=== PATIENT | female | born 2000 | race Caucasian/White ===

== ENCOUNTER 2021-02-08 04:25 | Emergency (ER) | payer OTHER ==
[2021-02-08 04:48] LABS: Urine Blood Trace-intact (Negative); Urine Glucose Negative (Negative); Urine Protein Trace (Negative); Urine Specific Gravity >=1.030 (1.005-1.030)
[2021-02-08 05:01] LABS: Urine Specific Gravity/Preg >1.030 (1.005-1.030)
[2021-02-08] MEDS ORDERED: MORPHINE 4 MG/ML SYR ONE (05:08)
[2021-02-08] MEDS ORDERED: ONDANSETRON 4 MG/2 ML VIAL ONE (05:08)
[2021-02-08] MEDS ORDERED: NA CHLORIDE 0.9% 500 ML ONE (05:09)
[2021-02-08 05:43] LABS: Absolute Lymphocytes (CBC) 2.3 K/uL (0.7-4.9); Basophils % 0.3 % (0-1.3); Hematocrit 33.7 % (36.0-45.0); Lymphocytes % 18.4 % (15.3-44.8); MPV 8.8 fL (7.6-11.3)
[2021-02-08 06:16] LABS: ALT/SGPT 30 U/L (12-78); AST/SGOT 22 U/L (15-37); Albumin 3.6 g/dL (3.4-5.0); Alkaline Phosphatase 60 U/L (45-117); BUN Blood Urea Nitrogen 16 mg/dL (7-18); Bicarbonate 25 mmol/L (21-32); Bilirubin Direct < 0.1 mg/dL (0-0.2); Bilirubin Total 0.4 mg/dL (0.2-1.0); Glucose Level 134 mg/dL (74-106); Lipase 95 U/L (73-393); Potassium 3.7 mmol/L (3.5-5.1); Protein, Total 7.5 g/dL (6.4-8.2); Sodium Level 138 mmol/L (136-145)
--- NOTE | 2021-02-08 08:15 | ER ---
Nurse's Notes [facility] Name: Valery Murrell Age: 20 yrs Sex: Female : 2000 Arrival Date: 02/08/2021 Time: 04:28 Bed 17 Private MD: Diagnosis: Biliary colic Presentation: 02/08 04:37 Chief complaint: Patient states: Scheduled for Gall Bladder Surgery on Sunday, Pt wh having RUQ pain and nausea. Coronavirus screen: Client denies travel out of the [place] in the last 14 days. At this time, the client does not indicate any symptoms associated with coronavirus-19. Ebola Screen: Patient negative for fever greater than or equal to 101.5 degrees Fahrenheit, and additional compatible Ebola Virus Disease symptoms Patient denies exposure to infectious person. Initial Sepsis Screen: Does the patient meet any 2 criteria? No. Patient's initial sepsis screen is negative. Does the patient have a suspected source of infection? Yes: Acute abdominal pain. Risk Assessment: Do you want to hurt yourself or someone else? Patient reports no desire to harm self or others. Onset of symptoms was February 08, 2021. 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 - Social history:: Smoking status: Patient denies any tobacco usage or history of. Screenin:41 Abuse screen: Denies threats or abuse. Denies injuries from another. Nutritional screening: No deficits noted. Tuberculosis screening: No symptoms or risk factors identified. Fall Risk None identified. Assessment: 04:40 General: Appears in no apparent distress. Behavior is calm, cooperative, appropriate for age. Pain: Complains of pain in right upper quadrant Pain currently is 7 out of 10 on a pain scale. Pain began 4 hours ago. Neuro: Level of Consciousness is awake, alert, obeys commands, Oriented to person, place, time, situation, Appropriate for age. Cardiovascular: Capillary refill < 3 seconds. Respiratory: Airway is patent Respiratory effort is even, unlabored, Respiratory pattern is regular, symmetrical. GI: Abdomen is flat, non-distended, Abd is soft Reports upper abdominal pain, nausea. : No signs and/or symptoms were reported regarding the genitourinary system. EENT: No signs and/or symptoms were reported regarding the EENT system. Derm: Skin is intact, is healthy with good turgor, Skin is pink, warm \T\ dry. normal. Musculoskeletal: Circulation, motion, and sensation intact. 06:15 Reassessment: Patient appears in no apparent distress at this time. No changes from previously documented assessment. Patient and/or family updated on plan of care and expected duration. Pain level reassessed. Patient is alert/active/playful, equal unlabored respirations, skin warm/dry/pink. 07:32 Reassessment: Patient appears in no apparent distress at this time. No changes from previously documented assessment. Patient and/or family updated on plan of care and expected duration. Pain level reassessed. 08:17 Reassessment: DC pending IV medication. bw 09:35 Reassessment: Patient appears in no apparent distress at this time. No changes from previously documented assessment. Patient is alert, oriented x 3, equal unlabored respirations, skin warm/dry/pink. Vital Signs: 04:37 BP 128 / 78; Pulse 70; Resp 16; Temp 98.2; Pulse Ox 100% ; Weight 90.72 kg; Height 5 wh ft. 6 in. (167.64 cm); Pain 7/10; 04:41 BP 128 / 78 (auto/); Pulse 71; Resp 15; Temp 97.8(TE); Pulse Ox 100% on R/A; ms1 06:15 BP 111 / 63; Pulse 67; Resp 16; Pulse Ox 98% on R/A; wh 07:32 BP 114 / 86; Pulse 58; Resp 14; Pulse Ox 99% ; Pain 5/10; wh 09:35 BP 122 / 83; Pulse 55; Resp 20; Pulse Ox 100% on R/A; bw 04:37 Body Mass Index 32.28 (90.72 kg, 167.64 cm) ED Course: 04:28 Patient arrived in ED. es 04:29 Ruthie Mcclain, RN is Primary Nurse. wh 04:40 Triage completed. wh 04:41 Arm band placed on right wrist. wh 04:41 Patient has correct armband on for positive identification. Bed in low position. Call light in reach. Side rails up X 1. Pulse ox on. NIBP on. 04:43 Dalton Lu MD is Attending Physician. pkl 08:14 Shade Garcia MD is Referral Physician. pkl 09:35 No provider procedures requiring assistance completed. IV discontinued, intact, bw bleeding controlled, No redness/swelling at site. Pressure dressing applied. Administered Medications: 04:48 Drug: NS 0.9% 500 ml Route: IV; Rate: bolus; Site: right antecubital; 06:29 Follow up: Response: No adverse reaction; IV Status: Completed infusion 05:00 Drug: morphine 4 mg {Note: RASS 0.} Route: IVP; Site: right forearm; 06:29 Follow up: Response: No adverse reaction; Pain is decreased; RASS: Alert and Calm (0) 05:02 Drug: Zofran (Ondansetron) 4 mg Route: IVP; Site: right forearm; 06:30 Follow up: Response: No adverse reaction; Nausea is decreased 08:18 Drug: Zosyn 3.375 grams Route: IVPB; Infused Over: 60 mins; Site: right antecubital; Outcome: 08:15 Discharge ordered by . pkl 09:35 Discharged to home ambulatory. bw 09:35 Condition: stable 09:35 Discharge instructions given to patient. 09:43 Patient left the ED. bw Signatures: Dalton Lu MD MD pk Reina Benitez Winsy, RN RN Page Deal ms1 Vijaya Kim RN RN bw Corrections: (The following items were deleted from the chart) 05:05 05:04 BP 128 / 78 Auto; Pulse 67bpm; Resp 16bpm; Pulse Ox 98% RA; Temp 97.8F Temporal; ms1 ms1
--- NOTE | 2021-02-08 08:15 | EDPHYS ---
Physician Documentation [facility] Name: Valery Murrell Age: 20 yrs Sex: Female : 2000 Arrival Date: 02/08/2021 Time: 04:28 Bed 17 Private MD: ED Physician aDlton Lu HPI: 02/08 07:39 This 20 yrs old Female presents to ER via Ambulatory with complaints of pkl GAULBLADDER PROBLEM. 07:39 The patient presents with abdominal pain in the right upper quadrant. Onset: The pkl symptoms/episode began/occurred just prior to arrival. Patient scheduled foe outpatient gallbladder surgery tomorrow. 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 - Social history:: Smoking status: Patient denies any tobacco usage or history of. ROS: 07:39 Eyes: Negative for injury, pain, redness, and discharge, ENT: Negative for injury, pkl pain, and discharge, Neck: Negative for injury, pain, and swelling, Cardiovascular: Negative for chest pain, palpitations, and edema, Respiratory: Negative for shortness of breath, cough, wheezing, and pleuritic chest pain. 07:39 Abdomen/GI: Positive for abdominal pain, of the right upper quadrant. 07:39 Back: Negative for acute changes. 07:39 : Negative for urinary symptoms. 07:39 MS/extremity: Negative for acute changes. 07:39 Skin: Negative for rash. 07:39 Neuro: Negative for altered mental status. Exam: 07:39 Head/Face: Normocephalic, atraumatic. Eyes: Pupils equal round and reactive to light, pkl extra-ocular motions intact. Lids and lashes normal. Conjunctiva and sclera are non-icteric and not injected. Cornea within normal limits. Periorbital areas with no swelling, redness, or edema. ENT: Nares patent. No nasal discharge, no septal abnormalities noted. Tympanic membranes are normal and external auditory canals are clear. Oropharynx with no redness, swelling, or masses, exudates, or evidence of obstruction, uvula midline. Mucous membranes moist. Neck: Trachea midline, no thyromegaly or masses palpated, and no cervical lymphadenopathy. Supple, full range of motion without nuchal rigidity, or vertebral point tenderness. No Meningismus. Chest/axilla: Normal chest wall appearance and motion. Nontender with no deformity. No lesions are appreciated. Cardiovascular: Regular rate and rhythm with a normal S1 and S2. No gallops, murmurs, or rubs. Normal PMI, no JVD. No pulse deficits. Respiratory: Lungs have equal breath sounds bilaterally, clear to auscultation and percussion. No rales, rhonchi or wheezes noted. No increased work of breathing, no retractions or nasal flaring. 07:39 Abdomen/GI: Bowel sounds: normal, Palpation: soft, mild abdominal tenderness, in the right upper quadrant. 07:39 Back: Exam negative for acute changes. 07:39 : Exam negative for acute changes. 07:39 Musculoskeletal/extremity: Exam is negative for acute changes. 07:39 Skin: Exam negative for rash. 07:39 Neuro: Orientation: is normal, Mentation: is normal, Cranial nerves: grossly normal, Motor: is normal. Vital Signs: 04:37 BP 128 / 78; Pulse 70; Resp 16; Temp 98.2; Pulse Ox 100% ; Weight 90.72 kg; Height 5 wh ft. 6 in. (167.64 cm); Pain 7/10; 04:41 BP 128 / 78 (auto/); Pulse 71; Resp 15; Temp 97.8(TE); Pulse Ox 100% on R/A; ms1 06:15 BP 111 / 63; Pulse 67; Resp 16; Pulse Ox 98% on R/A; wh 07:32 BP 114 / 86; Pulse 58; Resp 14; Pulse Ox 99% ; Pain 5/10; wh 09:35 BP 122 / 83; Pulse 55; Resp 20; Pulse Ox 100% on R/A; bw 04:37 Body Mass Index 32.28 (90.72 kg, 167.64 cm) wh MDM: 04:43 Patient medically screened. pkl 08:11 Data reviewed: vital signs, nurses notes, lab test result(s), radiologic studies. ED pkl course: talked to Dr. Garcia. Options given to patient to stay or go home and return for surgery tomorrow. patient want to go and return for surgery tomorrow. 02/08 04:30 Order name: Basic Metabolic Panel; Complete Time: 07:35 02/08 04:30 Order name: CBC with Diff; Complete Time: 07:35 02/08 04:30 Order name: Hepatic Function; Complete Time: 07:35 02/08 04:30 Order name: Lipase; Complete Time: 07:35 02/08 04:47 Order name: Urine --Ancillary (enter results) [facility] 02/08 04:47 Order name: Urine Dipstick-Ancillary; Complete Time: 07:35 [facility] 02/08 04:30 Order name: Urine Dipstick-Ancillary (obtain specimen); Complete Time: 05: 02/08 04:30 Order name: Urine Test (obtain specimen); Complete Time: 05: 02/08 04:30 Order name: IV Saline Lock; Complete Time: 05:03 02/08 04:30 Order name: Labs collected and sent; Complete Time: 05:03 Administered Medications: 04:48 Drug: NS 0.9% 500 ml Route: IV; Rate: bolus; Site: right antecubital; 06:29 Follow up: Response: No adverse reaction; IV Status: Completed infusion 05:00 Drug: morphine 4 mg {Note: RASS 0.} Route: IVP; Site: right forearm; 06:29 Follow up: Response: No adverse reaction; Pain is decreased; RASS: Alert and Calm (0) 05:02 Drug: Zofran (Ondansetron) 4 mg Route: IVP; Site: right forearm; 06:30 Follow up: Response: No adverse reaction; Nausea is decreased 08:18 Drug: Zosyn 3.375 grams Route: IVPB; Infused Over: 60 mins; Site: right antecubital; Disposition: 02/08/21 08:15 Discharged to Home. Impression: Biliary colic. - Condition is Stable. - Medication Reconciliation Form, Thank You Letter, Antibiotic Education, Prescription Opioid Use form. - Follow up: Shade Garcia MD; When: Tomorrow; Reason: Re-evaluation by your physician. - Problem is new. - Symptoms have improved. Signatures: Dispatcher [employer] Dalton Shah MD MD pkl Habalo Winsy, RN RN Vijaya Kim RN RN Corrections: (The following items were deleted from the chart) 09:43 08:15 02/08/2021 08:15 Discharged to Home. Impression: Biliary colic. Condition is bw Stable. Forms are Medication Reconciliation Form, Thank You Letter, Antibiotic Education, Prescription Opioid Use. Follow up: Shade Garcia; When: Tomorrow; Reason: Re-evaluation by your physician. Problem is new. Symptoms have improved. pkl
[2021-02-08] MEDS ORDERED: PIPER/TAZO/NS 3.375gm 3.375 GM/100 ML BAG ONE (08:26)
== END 2021-02-08 09:43 | disposition home or self-care (01) ==
LOC: ER 04:25
DX: K80.50 Calculus of bile duct without cholangitis or cholecystitis without obstruction (principal)
CPT/HCPCS: 85025; 80048; 36415; 81025; 80076; 81003; 83690; J2543; J7040; J2405; 99283

== ENCOUNTER 2021-02-08 13:20 | Observation (INO) | payer OTHER ==
--- NOTE | 2021-02-08 16:56 | ER ---
Nurse's Notes [facility] Name: Valery Murrell Age: 20 yrs Sex: Female : 2000 Arrival Date: 02/08/2021 Time: 13:21 Bed 7 Private MD: Diagnosis: Cholelithiasis Presentation: 02/08 13:58 Chief complaint: Patient states: Epigastric pain and Nausea continues since visit here ll1 this morning. Has scheduled gallbladder surgery tomorrow with Dr. Garcia. Coronavirus screen: Client denies travel out of the [place] in the last 14 days. At this time, the client does not indicate any symptoms associated with coronavirus-19. Ebola Screen: Patient denies travel to an Ebola-affected area in the 21 days before illness onset. Initial Sepsis Screen: Does the patient meet any 2 criteria? No. Patient's initial sepsis screen is negative. Does the patient have a suspected source of infection? Yes: Acute abdominal pain. Risk Assessment: Do you want to hurt yourself or someone else? Patient reports no desire to harm self or others. Onset of symptoms was February 07, 2021. 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 - Social history:: Smoking status: Patient denies any tobacco usage or history of. Screenin:18 Abuse screen: Denies threats or abuse. Denies injuries from another. Nutritional iw screening: No deficits noted. Tuberculosis screening: No symptoms or risk factors identified. Fall Risk IV access (20 points). Assessment: 17:16 General: Appears in no apparent distress. Behavior is calm, cooperative. Pain: iw Complains of pain in epigastric area Pain currently is 0 out of 10 on a pain scale. Neuro: Level of Consciousness is awake, alert, obeys commands, Oriented to person, place, time, situation, Moves all extremities. Full function. Cardiovascular: Patient's skin is warm and dry. Respiratory: Respiratory effort is even, unlabored. GI: Abdomen is flat. Derm: Skin is intact, is healthy with good turgor. Musculoskeletal: Range of motion: intact in all extremities. Vital Signs: 13:58 BP 142 / 85; Pulse 80; Resp 16; Temp 97.6; Pulse Ox 95% ; Weight 90.72 kg; Height 5 ft. ll1 6 in. (167.64 cm); Pain 9/10; 13:58 Body Mass Index 32.28 (90.72 kg, 167.64 cm) ll1 ED Course: 13:21 Patient arrived in ED. as 14:00 Triage completed. ll1 14:01 Arm band placed on Patient notified of wait time. ll1 16:46 Jessenia Aviles FNP-C is PHCP. kb 16:46 Matias Boyle MD is Attending Physician. kb 16:50 Initial lab(s) drawn, by me, sent to lab. Inserted saline lock: 20 gauge in right iw antecubital area, using aseptic technique. Blood collected. 16:55 Shade Garcia MD is Hospitalizing Provider. kb 17:15 Suzanne Foster, RN is Primary Nurse. iw 17:15 Patient has correct armband on for positive identification. iw 18:37 No provider procedures requiring assistance completed. Patient admitted, IV remains in iw place. Administered Medications: 17:48 Drug: Zosyn 3.375 grams Route: IVPB; Infused Over: 60 mins; Site: right antecubital; hb Outcome: 16:55 Decision to Hospitalize by Provider. kb 18:37 Admitted to Med/surg accompanied by tech, via wheelchair. iw 18:37 Admitted to Med/surg Report called to BRIANA Ferrari 18:37 Condition: good 18:37 Discharge instructions given to patient, Instructed on the need for admit, Demonstrated understanding of instructions. 18:38 Patient left the ED. iw Signatures: Jessenia Aviles FNP-C FNP-Kathi Peguero as Suzanne Foster, BRIANA WARREN Kylee Davila RN RN hb Lewis, Lynsay, RN RN ll1
--- NOTE | 2021-02-08 16:57 | EDPHYS ---
Physician Documentation [facility] Name: Valery Murrell Age: 20 yrs Sex: Female : 2000 Arrival Date: 02/08/2021 Time: 13:21 Bed 7 Private MD: ED Physician Matias Boyle HPI: 02/08 17:49 This 20 yrs old Female presents to ER via Ambulatory with complaints of kb Epigastric Pain - gallbladder. 17:49 The patient presents with abdominal pain in the upper abdomen. Onset: The kb symptoms/episode began/occurred yesterday. The symptoms do not radiate. Associated signs and symptoms: none. The symptoms are described as constant. Modifying factors: The symptoms are alleviated by nothing, the symptoms are aggravated by food. Severity of pain: At its worst the pain was moderate in the emergency department the pain is unchanged. The patient has experienced similar episodes in the past. The patient has been recently seen at the [facility] Emergency Department. Pt reports she has gallstones and is scheduled for cholecystectomy tomorrow. States she started feeling like she was going to have another attack last night. Came in this morning for evaluation. Dr Garcia wanted pt to be admitted at that time, but pt preferred to go home. States the pain has never gone away since starting last night so her family convinced her to come back. 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 - Social history:: Smoking status: Patient denies any tobacco usage or history of. ROS: 17:48 Constitutional: Negative for fever, chills, and weight loss, Cardiovascular: Negative kb for chest pain, palpitations, and edema, Respiratory: Negative for shortness of breath, cough, wheezing, and pleuritic chest pain, MS/Extremity: Negative for injury and deformity, Skin: Negative for injury, rash, and discoloration, Neuro: Negative for headache, weakness, numbness, tingling, and seizure. 17:48 Abdomen/GI: Positive for abdominal pain, Negative for nausea, vomiting, and diarrhea. Exam: 17:48 Constitutional: This is a well developed, well nourished patient who is awake, alert, kb and in no acute distress. Head/Face: Normocephalic, atraumatic. Cardiovascular: Regular rate and rhythm with a normal S1 and S2. No gallops, murmurs, or rubs. No pulse deficits. Respiratory: Respirations even and unlabored. No increased work of breathing, no retractions or nasal flaring. Skin: Warm, dry with normal turgor. Normal color. MS/ Extremity: Pulses equal, no cyanosis. Neurovascular intact. Full, normal range of motion. Neuro: Awake and alert, GCS 15, oriented to person, place, time, and situation. Moves all extremities. Normal gait. 17:48 Abdomen/GI: Inspection: abdomen appears normal, Bowel sounds: normal, in all quadrants, Palpation: soft, in all quadrants, mild abdominal tenderness, in the epigastric area and right upper quadrant. Vital Signs: 13:58 BP 142 / 85; Pulse 80; Resp 16; Temp 97.6; Pulse Ox 95% ; Weight 90.72 kg; Height 5 ft. ll1 6 in. (167.64 cm); Pain 9/10; 13:58 Body Mass Index 32.28 (90.72 kg, 167.64 cm) ll1 MDM: 16:46 Patient medically screened. kb 17:49 Data reviewed: vital signs, nurses notes. Data interpreted: Pulse oximetry: on room air kb is 95 %. Interpretation: normal. Counseling: I had a detailed discussion with the patient and/or guardian regarding: the historical points, exam findings, and any diagnostic results supporting the discharge/admit diagnosis, the need for further work-up and treatment in the hospital. Physician consultation: Shade Garcia MD was contacted at 16:50, regarding admission, to the medical/surgical unit. patient's condition, and will see patient in inpatient room. 02/08 16:50 Order name: Basic Metabolic Panel kb 02/08 16:50 Order name: CBC with Diff; Complete Time: 20:27 kb 02/08 16:50 Order name: Hepatic Function; Complete Time: 20:27 kb 02/08 16:50 Order name: Lipase kb 02/08 17:02 Order name: COVID-19 : Document "Date of Symptom Onset" if Symptomatic. sv 02/08 16:50 Order name: IV Saline Lock; Complete Time: 17:15 kb 02/08 16:50 Order name: Labs collected and sent; Complete Time: 17:15 kb Administered Medications: 17:48 Drug: Zosyn 3.375 grams Route: IVPB; Infused Over: 60 mins; Site: right antecubital; hb Disposition: 18:41 Co-signature as Attending Physician, Matias Boyle MD. rn Disposition: 02/08/21 16:55 Hospitalization ordered by Shade Garcia for Observation. Preliminary diagnosis is Cholelithiasis. - Bed requested for Telemetry/MedSurg (observation). - Status is Observation. iw - Condition is Stable. - Problem is new. - Symptoms are unchanged. Signatures: Dispatcher [employer] EDJessenia Fuller, YOEL-C PIN FEATHER MACHINE OPERATOR-Radha Roche, RN RN sv Suzanne Foster, RN BRIANA iw Matias Boyle MD MD rn Baxter, Heather, RN RN hb Lewis, Lynsay RN RN ll1 Corrections: (The following items were deleted from the chart) 17:56 16:55 Hospitalization Ordered by Shade Garcia MD for Observation. Preliminary sv diagnosis is Cholelithiasis. Bed requested for Telemetry/MedSurg (observation). Status is Observation. Condition is Stable. Problem is new. Symptoms are unchanged. kb 18:38 17:56 02/08/2021 16:55 Hospitalization Ordered by Shade Garcia MD for Observation. iw Preliminary diagnosis is Cholelithiasis. Bed requested for Telemetry/MedSurg (observation). Status is Observation. Condition is Stable. Problem is new. Symptoms are unchanged. sv
[2021-02-08] MEDS ORDERED: PIPER/TAZO/NS 3.375gm 3.375 GM/100 ML BAG ONE ×2 (17:20→17:50)
[2021-02-08] MEDS ORDERED: ACETAMINOPHEN 500 MG TAB PO PRN (18:27)
[2021-02-08] MEDS ORDERED: MORPHINE 4 MG/ML SYR IV PRN (18:27)
[2021-02-08] MEDS ORDERED: ONDANSETRON 4 MG/2 ML VIAL IV PRN (18:27)
[2021-02-08 19:47] LABS: Absolute Lymphocytes (CBC) 2.9 K/uL (0.7-4.9); Basophils % 0.2 % (0-1.3); Hematocrit 35.9 % (36.0-45.0); Lymphocytes % 15.5 % (15.3-44.8); MPV 9.5 fL (7.6-11.3); RBC Red Blood Cell Count 4.69 M/uL (3.86-4.86)
[2021-02-08 19:55] LABS: ALT/SGPT 45 U/L (12-78); AST/SGOT 33 U/L (15-37); Albumin 3.9 g/dL (3.4-5.0); Alkaline Phosphatase 73 U/L (45-117); BUN Blood Urea Nitrogen 8 mg/dL (7-18); Bicarbonate 21 mmol/L (21-32); Bilirubin Direct < 0.1 mg/dL (0-0.2); Bilirubin Total 0.5 mg/dL (0.2-1.0); Glucose Level 65 mg/dL (74-106); Lipase 76 U/L (73-393); Protein, Total 7.9 g/dL (6.4-8.2); Sodium Level 138 mmol/L (136-145)
[2021-02-08 20:17] VITALS: BMI 32.8
[2021-02-08] MEDS: NA CHLORIDE 0.9% 1,000 ML IV SCH (20:20)
[2021-02-08] MEDS ORDERED: PIPERACIL/TAZO 3.375 GM VIAL IV ONE (23:28)
[2021-02-08] MEDS ORDERED: NA CHLORIDE 0.9% 100 ML ONE (23:31)
[2021-02-09] MEDS: PIPER/TAZO/NS 3.375gm 3.375 GM/100 ML BAG IVPB SCH ×2 (00:03→06:09)
[2021-02-09] MEDS ORDERED: PIPER/TAZO/NS 3.375gm 0 GM/0 ML BAG ONE (00:18)
[2021-02-09] MEDS ORDERED: PIPER/TAZO/NS 3.375gm 3.375 GM/100 ML BAG ONE (01:00)
[2021-02-09] MEDS: NA CHLORIDE 0.9% 1,000 ML IV SCH ×3 (02:27→10:27)
[2021-02-09 04:22] LABS: Basophils % 0.3 % (0-1.3); Lymphocytes % 36.7 % (15.3-44.8); MPV 8.9 fL (7.6-11.3); RBC Red Blood Cell Count 4.06 M/uL (3.86-4.86)
[2021-02-09 04:56] LABS: ALT/SGPT 33 U/L (12-78); AST/SGOT 18 U/L (15-37); Albumin 3.2 g/dL (3.4-5.0); Alkaline Phosphatase 55 U/L (45-117); BUN Blood Urea Nitrogen 10 mg/dL (7-18); Bicarbonate 26 mmol/L (21-32); Bilirubin Direct 0.1 mg/dL (0-0.2); Bilirubin Total 0.6 mg/dL (0.2-1.0); Glucose Level 94 mg/dL (74-106); Lipase 77 U/L (73-393); Potassium 3.6 mmol/L (3.5-5.1); Protein, Total 6.9 g/dL (6.4-8.2); Sodium Level 139 mmol/L (136-145)
[2021-02-09] MEDS ORDERED: Ringers Lactate 1,000 ML IV ONE (07:00)
[2021-02-09] MEDS ORDERED: CEFOXITIN/SWI 1gm 0 GM/0 ML SYR ONE (07:02)
[2021-02-09] MEDS ORDERED: propofoL 200 MG/20 ML VIAL IV ONE (07:23)
[2021-02-09] MEDS ORDERED: FENTANYL CITR 100 MCG/2 ML ONE (07:23)
[2021-02-09] MEDS ORDERED: LIDOCAINE 2% MPF 5 ML VIAL ONE (07:23)
[2021-02-09] MEDS ORDERED: ROCURONIUM 50 MG/5 ML VIAL IV ONE (07:23)
[2021-02-09] MEDS ORDERED: MIDAZOLAM HCL 2 MG/2 ML INJ ONE (07:23)
[2021-02-09] MEDS ORDERED: dexAMETHasone 10 MG/ML VIAL ONE (07:23)
[2021-02-09] MEDS ORDERED: ONDANSETRON 4 MG/2 ML VIAL ONE (07:24)
--- NOTE | 2021-02-09 08:23 | P.BOP ---
Preoperative diagnosis: acute cholecystitis, symptomatic cholelithiasis, RUQ abd pain Postoperative diagnosis: same Primary procedure: Laparoscopic cholecystectomy Manager Net: Evelin Atkins) Estimated blood loss: <10cc Specimen: gb Findings: acute cholecystitis Anesthesia: General Complications: None Transferred to: Recovery Room Condition: Good
[2021-02-09] MEDS ORDERED: HYDROCODONE/APAP 5/325 MG TAB PO PRN (08:24)
[2021-02-09] MEDS ORDERED: KETOROLAC 30 MG/ML INJ ONE (08:31)
[2021-02-09] MEDS ORDERED: GLYCOPYRROLATE 0.2 MG/ML SYR ONE (08:37)
[2021-02-09] MEDS ORDERED: NEOSTIGMINE 1 MG/ML -5 ML ONE (08:37)
--- NOTE | 2021-02-09 09:03 | OP ---
Date of Procedure: 02/09/2021 Surgeon: Shade Garcia MD Dive Master: Evelin Briones. Preoperative Diagnoses: Acute cholecystitis, symptomatic cholelithiasis, right upper quadrant abdomi nal pain. Postoperative Diagnoses: Acute cholecystitis, symptomatic cholelithiasis, right upper quadrant abdom inal pain. Procedure: Laparoscopic cholecystectomy. Estimated Blood Loss: Less than 10 cc. Findings: Acute cholecystitis. Anesthesia: General plus local. Indication: This is a case of a female comes to us with acute abdominal pain. She was scheduled arturo ctively for this morning, but yesterday afternoon she could not take it anymore. The pain was worse, so she was admitted last night, pain control, antibiotics, and once again fully explained the benefi ts, alternatives, and risks of laparoscopic possible open cholecystectomy, which include, but not luong ited to infection, bleeding, damage to adjacent structures, anesthesia complications, choledocholithi asis, bile leak, pancreatitis, [place], and . She also understands this may not relieve any symptoms . She might need more than one surgical intervention. She understood, signed a consent. Description Of Procedure: Patient was brought to the operating room, placed in supine position. Ane sthesia was done without complication. A time-out was called. Abdomen was prepped and draped in a s terile fashion. Local anesthesia was applied over infraumbilical region. Incision was carried down to fascia, which was opened under direct vision. Peritoneum was encountered opened under direct visi on. Vicryl #1 placed inside the fascia. Sandrine trocar was carefully introduced. No bleeding was ob tained. Immediately, we noticed the gallbladder to be inflamed and distended. We placed 3 more troc ar in the right upper quadrant under direct visualization, 5 mm each one of them. This allowed me to introduce an Endo needle under direct visualization and deflated the gallbladder partially. Needle was removed under direct visualization. A grasper placed in the fundus of the gallbladder. Another grasper in the infundibulum retracting the gallbladder inferolateral fashion exposing the triangle of Calot obtaining critical view. The cystic duct and cystic artery were clearly isolated freed circum ferentially and a connection between those and the gallbladder were clearly identified. I proceeded to ligate those by using at least 3 clips proximal, 1 clip distal, ligation in middle. Same was done with the cystic artery. A small little branch of the cystic artery was also ligated using the same technique. The hepatic arteries and common bile duct were protected at all times. The gallbladder w as removed from liver using Bovie cauterizer and removed from abdominal cavity using EndoCatch throug h the umbilical incision. The umbilical incision have to be extended to be able to accommodate the l arge gallstones. We put the camera once again in obtaining pneumoperitoneum. Checked the area for a ny bleeding or any bile leak. There was none. This was after irrigation and suction. Clips were in tact. At that moment, I proceeded to remove the trocars under direct vision, deflated pneumoperitone um, closed the fascia with #1 Vicryl with multiple Vicryl, irrigated subcutaneous tissue, closed with 3-0 chromic and skin in subcuticular fashion with 3-0 chromic and Steri-Strips on top. Sponge count , instrument counts correct. Patient tolerated the procedure well. Patient was sent to recovery in stable condition. If the patient tolerated the dinner then she will be able to go home. RAJWINDER/JAGDISH Voice ID: [id number] Report ID: [id number]
[2021-02-09 09:12] VITALS: O2SAT 96
[2021-02-09 14:34] VITALS: BP 116/70; TEMP 97.1
[2021-02-09] MEDS ORDERED: PIPER/TAZO/NS 3.375gm 3.375 GM/100 ML BAG IVPB SCH (17:00)
--- NOTE | 2021-02-10 13:52 | DS ---
Date of Discharge: 02/09/2021 Diagnoses: Acute cholecystitis and symptomatic cholelithiasis, right upper quadrant abdominal pain. Procedure: Laparoscopic cholecystectomy. The patient will be discharged home with followup in my office in 1 week call for appointment at [phone]. Keep area dry for 48 hours, then may shower. Keep Steri-Strip intact. Medications: Will include Augmentin 875 p.o. q.12, Zofran 4 q.6 p.r.n. nausea and Tylenol No 3 q.4 h ours p.r.n. pain. No heavy lifting, no more than 20 pounds. RAJWINDER/JAGDISH Voice ID: [id number] Report ID: [id number]
== END 2021-02-09 18:16 | disposition home or self-care (01) ==
LOC: ER 13:20 → ERHOLD 17:11 → 2ND 18:27
PROVIDERS: ADMIT Surgery; ATTEND Surgery
PROC: 0FT44ZZ Resection of Gallbladder, Percutaneous Endoscopic Approach (ICD-10-PCS; principal; 2021-02-09 07:30)
DX: K80.12 Calculus of gallbladder with acute and chronic cholecystitis without obstruction (principal); R73.03 Prediabetes
CPT/HCPCS: 36415; 80048; 80076; 82947; 83690; 85025; 88304; 94010; 96374; 99285; G0378; J1100; J2250; J2405; J2543; J2704; J2710; J3010; J7030; J7120